=== PATIENT | male | born 1980 | race Caucasian/White ===

== ENCOUNTER 2020-05-10 07:39 | Emergency (ER) | payer OTHER ==
[~2020-05-10] VITALS: Ht 193 cm; Wt 118.6 kg
[2020-05-10 07:41] VITALS: BP 142/83
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
[2020-05-10] MEDS ORDERED: OXYC15TA3 PO (07:55)
[2020-05-10] MEDS ORDERED: SODIUM CHLORIDE FLUSH 10ML SYR IVF ONE (08:00)
[2020-05-10 08:18] LABS: BASOPHILS % (AUTO) 0 % (0-1); EOSINOPHILS % (AUTO) 6 % (1-7); LYMPHOCYTES % (AUTO) 27 % (22-44); MEAN CORPUSCULAR HEMOGLOBIN 32.8 pg (27.5-34.5); MEAN CORPUSCULAR HGB CONC 34.2 g/dL (33.2-36.2); MEAN PLATELET VOLUME 8.2 fL (7.4-10.4); MONOCYTES % (AUTO) 18 % (2-9); NEUTROPHILS % (AUTO) 48 % (42-75); PLATELET COUNT 268 x10^3/uL (130-400); RED BLOOD COUNT 5.44 x10^6/uL (4.38-5.82); RED CELL DISTRIBUTION WIDTH 12.9 % (9.4-14.8)
--- NOTE | 2020-05-10 08:21 | NUR ---
XRAY AT BEDSIDE
[2020-05-10 08:28] LABS: ALBUMIN 3.6 g/dL (3.4-5.0); ANION GAP 6 mmol/L (5-15); CALCIUM 9.2 mg/dL (8.5-10.1); CHLORIDE 107 mmol/L (98-107); CREATININE 0.95 mg/dL (0.7-1.3)
--- NOTE | 2020-05-10 08:34 | NUR ---
DR. VARGAS AT BEDSIDE.
[2020-05-10 08:46] LABS: MD SCAN
--- NOTE | 2020-05-10 08:47 | NUR ---
Pt to be admitted to OR. Report called to [id number].
[2020-05-10] MEDS ORDERED: MIDAZOLAM 1 MG/ML, 2ML ONE (09:20)
[2020-05-10] MEDS ORDERED: FENTANYL PF 250 MCG/5ML ONE (09:20)
[2020-05-10] MEDS ORDERED: CHLORHEXIDINE 15 ML UDC MM ONE (09:30)
[2020-05-10] MEDS ORDERED: KETOROLAC 30 MG/1 ML ONE (09:35)
[2020-05-10] MEDS ORDERED: ROCURONIUM 10MG/ML,5ML ONE (09:35)
[2020-05-10] MEDS ORDERED: CEFAZOLIN 1,000 MG ONE ×3 (09:35→10:11)
[2020-05-10] MEDS ORDERED: SUCCINYLCHOLINE 20 MG/ML, 10ML ONE (09:35)
[2020-05-10] MEDS ORDERED: EPHEDRINE 50 MG/ML, 1ML ONE (09:50)
[2020-05-10] MEDS ORDERED: MEPERIDINE/PF 25MG/0.5ML IVPush PRN (10:00)
[2020-05-10] MEDS ORDERED: ONDANSETRON 2MG/ML, 2ML IVPush PRN (10:00)
[2020-05-10] MEDS ORDERED: PROMETHAZINE 25 MG/ML, 1ML IVPush PRN (10:00)
[2020-05-10] MEDS ORDERED: DIPHENHYDRAMINE 50 MG/ML, 1ML IVPush PRN (10:00)
[2020-05-10] MEDS ORDERED: ALBUTEROL SULFATE 2.5 MG/3 ML NPPB PRN (10:00)
[2020-05-10] MEDS ORDERED: PROMETHAZINE 12.5 MG SUPP PR PRN (10:00)
[2020-05-10] MEDS ORDERED: EPHEDRINE 50 MG/ML, 1ML IVPush PRN (10:00)
[2020-05-10] MEDS ORDERED: hydrALAzine 20 MG/ML, 1ML IV PRN (10:00)
[2020-05-10] MEDS ORDERED: OXYcodone 5 MG/5 ML ORAL.SOL UDC PO PRN (10:00)
[2020-05-10] MEDS ORDERED: ACETAMINOPHEN 325 MG TABLET PO PRN (10:00)
[2020-05-10] MEDS ORDERED: LABETALOL 5MG/ML, 20ML IV PRN (10:00)
[2020-05-10] MEDS ORDERED: MIDAZOLAM 1 MG/ML, 2ML IV PRN (10:00)
[2020-05-10] MEDS ORDERED: BUPIVACAINE/PF-EPI 0.25% 1:200K INFIL ONE (10:05)
[2020-05-10] MEDS ORDERED: PROPOFOL 10 MG/ML, 20ML ONE (10:11)
[2020-05-10] MEDS ORDERED: DEXAMETHASONE 4 MG/ML, 1ML ONE ×2 (10:11)
[2020-05-10] MEDS ORDERED: ONDANSETRON 2MG/ML, 2ML ONE ×2 (10:11)
[2020-05-10] MEDS: FENTANYL PF 100 MCG/2ML IV PRN ×3 (11:43→12:14)
[2020-05-10] MEDS: HYDROmorphone 1 MG/ML, 1ML INJ IVPush PRN ×4 (11:45→12:28)
[2020-05-10] MEDS: DIAZEPAM 5 MG/ML, 2ML IVPush PRN ×2 (12:13→12:28)
== END 2020-05-10 14:30 | disposition home or self-care (01) ==
LOC: ED 08:06
DX: S46.122A Laceration of muscle, fascia and tendon of long head of biceps, left arm, initial encounter (principal); Z20.818 Contact with and (suspected) exposure to other bacterial communicable diseases; R10.9 Unspecified abdominal pain; X58.XXXA Exposure to other specified factors, initial encounter; Y93.89 Activity, other specified; Y92.89 Other specified places as the place of occurrence of the external cause; Y99.0 Civilian activity done for income or pay
CPT/HCPCS: 24341; 36415; 71045; 80048; 82040; 85025; 87635; 93005; 96374; 96375; 96376; 99285; J0171; J0330; J0690; J1100; J1170; J1885; J2250; J2405; J2704; J3010; J3360